=== PATIENT | male | born 1970 | race Caucasian/White ===

== ENCOUNTER → 2016-06-25 | Outpatient (REF) | LOC: ZLAB.WCH 12:32 | DX: Z01.89 Encounter for other specified special examinations (principal) ==

== ENCOUNTER → 2016-10-06 | Outpatient (CLI) | payer OTHER | LOC: BHSO 10:24 | DX: F41.1 Generalized anxiety disorder (principal) ==

== ENCOUNTER → 2016-11-18 | Outpatient (REF) | LOC: ZLAB.WCH 18:11 | DX: Z01.89 Encounter for other specified special examinations (principal) ==

== ENCOUNTER → 2016-11-24 | Outpatient (CLI) | payer OTHER | LOC: BHSO 11:23 | DX: F41.1 Generalized anxiety disorder (principal) ==

== ENCOUNTER → 2017-03-29 | Outpatient (REF) | LOC: ZLAB.WCH 18:10 | DX: Z01.89 Encounter for other specified special examinations (principal) ==

== ENCOUNTER 2017-05-01 09:10 | Outpatient (RCR) | payer OTHER | END 2017-07-07 10:25 | disposition home or self-care (01) | LOC: WSOH 09:10 | DX: Z77.21 Contact with and (suspected) exposure to potentially hazardous body fluids (principal); S61.230A Puncture wound without foreign body of right index finger without damage to nail, initial encounter; W26.0XXA Contact with knife, initial encounter; Y93.E5 Activity, floor mopping and cleaning; Y99.0 Civilian activity done for income or pay; Z79.4 Long term (current) use of insulin; Z96.41 Presence of insulin pump (external) (internal) ==

== ENCOUNTER → 2017-06-27 | Outpatient (REF) | LOC: ZLAB.WCH 17:58 | DX: Z01.89 Encounter for other specified special examinations (principal) ==

== ENCOUNTER 2017-07-31 11:09 | Outpatient (RCR) | payer OTHER | END 2017-10-29 | disposition home or self-care (01) | LOC: WSOH | DX: Z01.84 Encounter for antibody response examination (principal); Z77.21 Contact with and (suspected) exposure to potentially hazardous body fluids; W26.8XXA Contact with other sharp object(s), not elsewhere classified, initial encounter; Y93.E9 Activity, other interior property and clothing maintenance; Y92.219 Unspecified school as the place of occurrence of the external cause; Y99.0 Civilian activity done for income or pay; Z79.4 Long term (current) use of insulin; Z79.899 Other long term (current) drug therapy; Z96.41 Presence of insulin pump (external) (internal) ==

== ENCOUNTER → 2017-10-20 | Outpatient (REF) | LOC: ZLAB.WCH 18:09 | DX: Z01.89 Encounter for other specified special examinations (principal) ==

== ENCOUNTER 2017-11-15 13:04 | Outpatient (RCR) | payer OTHER | END 2018-02-13 | disposition home or self-care (01) | LOC: WSOH | DX: Z77.21 Contact with and (suspected) exposure to potentially hazardous body fluids (principal); Z01.84 Encounter for antibody response examination; W26.8XXA Contact with other sharp object(s), not elsewhere classified, initial encounter; Y93.E9 Activity, other interior property and clothing maintenance; Y92.219 Unspecified school as the place of occurrence of the external cause; Y99.0 Civilian activity done for income or pay; Z79.4 Long term (current) use of insulin; Z96.41 Presence of insulin pump (external) (internal) ==

== ENCOUNTER → 2018-02-28 | Outpatient (REF) | LOC: ZLAB.WCH 16:33 | DX: Z01.89 Encounter for other specified special examinations (principal) ==

== ENCOUNTER → 2018-07-01 | Outpatient (REF) | LOC: ZLAB.WCH 10:23 | DX: Z01.89 Encounter for other specified special examinations (principal) ==

== ENCOUNTER 2019-01-30 13:38 | Outpatient (RCR) | payer OTHER | END 2019-02-01 10:09 | disposition home or self-care (01) | LOC: WSOH 13:38 | DX: S20.222D Contusion of left back wall of thorax, subsequent encounter (principal); E11.9 Type 2 diabetes mellitus without complications; Y99.0 Civilian activity done for income or pay ==